=== PATIENT | female | born 1940 | race Caucasian/White ===

== ENCOUNTER 2021-11-03 05:29 | Day surgery (SDC) | payer MEDICARE, BC ==
[2021-10-26 14:33] LABS: BASOPHILS % (AUTO) 0.7 % (0-1); EOSINOPHILS # (AUTO) 0.1 X10'3 (0-0.9); EOSINOPHILS % (AUTO) 2.1 % (0-6); LYMPHOCYTES % (AUTO) 31.7 % (21-51); MEAN CORPUSCULAR HEMOGLOBIN 30.2 PG (27.0-31.0); MEAN CORPUSCULAR HGB CONC 34.2 g/dL (33.0-36.5); MEAN CORPUSCULAR VOLUME 88.4 FL (78-98); MONOCYTES # (AUTO) 0.8 X10'3 (0-0.9); MONOCYTES % (AUTO) 12.3 % (2-12); NEUTROPHILS # (AUTO) 3.3 X10'3 (1.8-7.7); NEUTROPHILS % (AUTO) 53.2 % (42-75); PRE OP HEMATOCRIT 42.8 % (35.0-45.0); PRE OP HEMOGLOBIN 14.6 g/dL (12.0-16.0); PRE OP PLATELET COUNT 250 X10'3 (140-440); RED BLOOD COUNT 4.84 X10'6 (4.20-5.60); RED CELL DISTRIBUTION WIDTH 14.9 % (11.5-14.5)
[2021-10-26 14:47] LABS: PRE OP INR 1.1 INR; PRE OP PROTIME 10.9 SECONDS (9.0-12.0)
[2021-10-26 15:32] LABS: ALBUMIN 3.7 G/DL (3.4-5.0); ALBUMIN/GLOBULIN RATIO 0.9 (1.1-1.5); ALKALINE PHOSPHATASE 57 IU/L (46-116); BLOOD UREA NITROGEN 21 MG/DL (7-18); BUN/CREATININE RATIO 19.3 (6.6-38.0); CALCIUM 9.2 MG/DL (8.5-10.1); CHLORIDE 104 MMOL/L (99-107); CREATININE 1.09 MG/DL (0.40-0.90); PRE OP ALT 31 U/L (30-65); PRE OP ANION GAP 8 (8-16); PRE OP AST 20 U/L (10-37); PRE OP BILIRUB, TOTAL 0.4 MG/DL (0.0-1.0); PRE OP GLUCOSE 90 MG/DL (70-104); PRE OP POTASSIUM 3.8 MMOL/L (3.4-5.1); PRE OP SODIUM 137 MMOL/L (135-145); TOTAL CARBON DIOXIDE 25.5 MMOL/L (24-32); TOTAL PROTEIN 7.8 G/DL (6.4-8.2); eGFR 48 ML/MIN
[2021-11-03] VITALS (11 sets, daily range): BP systolic 103–145; BP diastolic 52–96
[~2021-11-03] VITALS: Ht 167.6 cm; Wt 92.0 kg
[~2021-11-03 05:29] MED LIST: ACET-1025 PO; HYDR25TA5 PO; LOVA40TA76 PO; ringers solution, lacted 1,000 ML IV SCH
[2021-11-03] MEDS ORDERED: tranexamic acid inj. 1,000 MG in 0.7% saline 100 ML PMX IV ONE (05:30)
[2021-11-03] MEDS ORDERED: famotidine 20mg tablet PO ONE (05:30)
[2021-11-03] MEDS ORDERED: vancomycin 1,500 MG in NS 300ml IV soln IV ONE (05:30)
[2021-11-03] MEDS ORDERED: cefazolin/dext.iso 2gm/50ml IV ONE (05:30)
[2021-11-03] MEDS ORDERED: fentaNYL/PF 50MCG/1 ML 2ML syringe ONE ×3 (07:12→09:43)
[2021-11-03] MEDS ORDERED: midazolam 1 mg/ML 2ml injection ONE (07:12)
[2021-11-03] MEDS ORDERED: LIDOcaine 2% (20mg/ml) 5ml vial ONE (07:13)
[2021-11-03] MEDS ORDERED: dexamethasone sod phosphate 4mg/ml inj. ONE (07:13)
[2021-11-03] MEDS ORDERED: ROPIVAcaine 0.5% (5mg/ml) 30ml vial ONE (07:13)
[2021-11-03] MEDS ORDERED: propofol inj 20 ML IV ONE (07:13)
[2021-11-03] MEDS ORDERED: ondansetron/PF 4mg/2ml inj ONE (07:13)
[2021-11-03] MEDS ORDERED: succinylcholine 20mg/ml inj IV ONE (07:13)
[2021-11-03] MEDS ORDERED: fentaNYL/PF 50MCG/1 ML 2ML syringe IV PRN ×2 (07:25)
[2021-11-03] MEDS ORDERED: ringers solution, lacted 1,000 ML IV SCH (07:25)
[2021-11-03] MEDS ORDERED: morphine 2 MG/ML inj. syringe IV PRN (07:25)
[2021-11-03] MEDS ORDERED: ondansetron/PF 4mg/2ml inj IV PRN (07:25)
[2021-11-03] MEDS ORDERED: labetalol 20mg/4ml (5mg/ml) syringe IV PRN (07:25)
[2021-11-03] MEDS ORDERED: hydrALAZINE 20mg/ml inj. IV PRN (07:25)
[2021-11-03] MEDS ORDERED: morphine 4 MG/ML inj SYRINge IV PRN (07:25)
[2021-11-03] MEDS ORDERED: ePHEDrine 50MG/ML INJ. ONE (07:58)
--- NOTE | 2021-11-03 10:34 | NUR ---
Received from OR via BED IN STABLE CONDITION, accompanied by Anesthesiologist and REAL ESTATE SPECIALIST report given by REAL ESTATE SPECIALIST AND Anesthesiolgist. Addendum: 11/03/21 at 1132 by Janna Stafford RN Amended: Links added.
--- NOTE | 2021-11-03 10:55 | NUR ---
ORAL AIRWAY REMOVED. Addendum: 11/03/21 at 1227 by Janna Stafford RN Amended: Links added.
[2021-11-03] MEDS ORDERED: HYDR-3972 PO (11:02)
--- NOTE | 2021-11-03 12:14 | NUR ---
PATIENT DISCHARGED FROM PACU IN STABLE CONDITION AFTER WRITTEN AND VERBAL DISCHARGE INSTRUCTIONS GIVEN. PATIENT GAVE VERBAL UNDERSTANDING OF INSTRUCTIONS GIVEN. PATIENT LEFT FACILITY VIA WHEELCHAIR WITH RN. Addendum: 11/03/21 at 1232 by Janna Stafford RN Amended: Links added.
== END 2021-11-03 12:14 | disposition home or self-care (01) ==
LOC: PAS 05:29
PROVIDERS: ATTEND Orthopaedic Surgery
DX: S46.012A Strain of muscle(s) and tendon(s) of the rotator cuff of left shoulder, initial encounter (principal); M75.22 Bicipital tendinitis, left shoulder; M19.012 Primary osteoarthritis, left shoulder; G89.18 Other acute postprocedural pain; I10 Essential (primary) hypertension; G47.33 Obstructive sleep apnea (adult) (pediatric); E66.01 Morbid (severe) obesity due to excess calories; Z68.32 Body mass index [BMI] 32.0-32.9, adult; Z90.49 Acquired absence of other specified parts of digestive tract; Z98.890 Other specified postprocedural states; Z96.653 Presence of artificial knee joint, bilateral; Z20.822 Contact with and (suspected) exposure to COVID-19; Z79.899 Other long term (current) drug therapy; Z79.01 Long term (current) use of anticoagulants; W19.XXXA Unspecified fall, initial encounter; Y93.89 Activity, other specified; Y92.89 Other specified places as the place of occurrence of the external cause; Y99.8 Other external cause status
CPT/HCPCS: 23120; 23130; 23412; 23430; 36415; 64415; 76942; 80053; 82948; 85025; 85610; 85730; 93005; A6223; C1713; J0330; J0690; J1100; J2250; J2405; J2704; J2795; J3010; J3370; J3490; J7030; J7040; J7120; U0003; U0005; Z7506; Z7508; Z7512; A4565; A4618; A6253; A6449; A7000

== ENCOUNTER 2024-02-19 15:54 | Emergency (ER) | payer MEDICARE, BC ==
[~2024-02-19] VITALS: Ht 167.6 cm; Wt 93.0 kg
[~2024-02-19 15:54] MED LIST changes: -ringers solution, lacted 1,000 ML IV SCH
[2024-02-19 17:22] VITALS: TEMP 98.4
[2024-02-19 18:02] LABS: BASOPHILS % (AUTO) 0.1 % (0-1); EOSINOPHILS % (AUTO) 0 % (0-6); HEMATOCRIT 45.3 % (35.0-45.0); HEMOGLOBIN 15.4 g/dl (12.0-16.0); LYMPHOCYTES # (AUTO) 0.8 X10'3 (1.1-4.8); LYMPHOCYTES % (AUTO) 8.8 % (21-51); MEAN CORPUSCULAR HEMOGLOBIN 30.5 PG (27.0-31.0); MEAN CORPUSCULAR VOLUME 89.8 FL (78-98); MEAN PLATELET VOLUME 8.5 FL (7.4-10.4); MONOCYTES # (AUTO) 0.3 X10'3 (0-0.9); MONOCYTES % (AUTO) 3.8 % (2-12); NEUTROPHILS # (AUTO) 7.8 X10'3 (1.8-7.7); NEUTROPHILS % (AUTO) 87.3 % (42-75); PLATELET COUNT 244 X10'3 (140-440); RED BLOOD COUNT 5.04 X10'6 (4.20-5.60); RED CELL DISTRIBUTION WIDTH 13.6 % (11.5-14.5)
[2024-02-19 18:05] LABS: ALANINE AMINOTRANSFERASE 32 U/L (12-78); ALBUMIN 3.6 G/DL (3.4-5.0); ALBUMIN/GLOBULIN RATIO 0.8 (1.1-1.5); ALKALINE PHOSPHATASE 61 IU/L (46-116); ANION GAP 10 (8-16); ASPARTATE AMINO TRANSFERASE 21 U/L (10-37); BILIRUBIN,TOTAL 0.7 MG/DL (0.1-1.0); BLOOD UREA NITROGEN 29 MG/DL (7-18); BUN/CREATININE RATIO 19.7 (10.0-20.0); CALCIUM 8.9 MG/DL (8.5-10.1); CHLORIDE 102 MMOL/L (99-107); CREATININE 1.47 MG/DL (0.40-0.90); GLUCOSE 135 MG/DL (70-104); LIPASE 29 U/L (16-77); SODIUM 137 MMOL/L (135-145); TOTAL CARBON DIOXIDE 25.5 MMOL/L (24-32); TOTAL PROTEIN 8.1 G/DL (6.4-8.2); eCRCL 27 ML/MIN; eGFR 34 ML/MIN
[2024-02-19] MEDS: normal saline 1000ML IV soln IVB ONE (18:32)
[2024-02-19] MEDS: potassium Cl 20 mEq SR tablet PO STA (19:11)
[2024-02-19] MEDS: loperamide 2mg capsule PO ONE (19:11)
[2024-02-19] MEDS: acetaminophen 325mg tablet PO ONE (19:11)
[2024-02-19 20:00] VITALS: RESP 15
[2024-02-19] MEDS ORDERED: ONDA8TAB13 PO (20:34)
[2024-02-19] MEDS ORDERED: POTA-207 PO (20:35)
[2024-02-19 20:45] LABS: BILIRUBIN,URINE NEGATIVE (Neg); CLARITY,URINE CLOUDY (Clear); COLOR,URINE YELLOW (Yellow); GLUCOSE, URINE NEGATIVE (Neg); KETONES,URINE NEGATIVE (Neg); LEUKOCYTE ESTERASE ,URINE SMALL (Neg); NITRITES, URINE POSITIVE (Neg); OCCULT BLOOD,URINE SMALL (Neg); PROTEIN,URINE NEGATIVE (Neg); UROBILINOGEN,URINE 0.2 E.U/dL (0.2-1.0)
[2024-02-19 20:48] LABS: UA COLLECTION TYPE CLN CATCH MIDSTREAM
[2024-02-19 20:54] VITALS: BP 111/47; PULSE 71; O2SAT 99
[2024-02-19 20:54] LABS: WBC,URINE TNTC /HPF (0-4)
[2024-02-19 20:55] LABS: BACTERIA,URINE 3+ /HPF (Neg); SQUAMOUS EPITHELIAL CELL,UR MODERATE /LPF (FEW); WBC CLUMPS,URINE FEW /HPF (NEGATIVE)
[2024-02-19 20:58] LABS: RBC,URINE 0-2 /HPF (0-2)
[2024-02-19 21:00] LABS: MUCUS STRANDS FEW /LPF (Neg)
[2024-02-22] MEDS ORDERED: CEPH-585 PO (20:48)
== END 2024-02-19 20:57 | disposition home or self-care (01) ==
LOC: ER 15:54
DX: K52.9 Noninfective gastroenteritis and colitis, unspecified (principal); R53.1 Weakness; R11.0 Nausea; I10 Essential (primary) hypertension; Z91.048 Other nonmedicinal substance allergy status
CPT/HCPCS: 36415; 80053; 81001; 83690; 84145; 85025; 87077; 87088; 87186; 87502; 87503; 96360; 96361; 99285; J7030